=== PATIENT | female | born 1975 | race Caucasian/White ===

== ENCOUNTER → 2017-01-20 | Outpatient (CLI) | payer BC ==
--- NOTE | 2017-01-22 11:00 | MM ---
Reason for exam: screening (asymptomatic). Last mammogram was performed 1 year and 1 month ago. History: Patient has history of other cancer at age 38 and is nulliparous. Physical Findings: A clinical breast exam by your physician is recommended on an annual basis and results should be correlated with mammographic findings. MG 3D Screening Mammo W/Cad Bilateral CC and MLO view(s) were taken. Prior study comparison: January 01, 2016, bilateral MG screening mammo w CAD. The breast tissue is heterogeneously dense. This may lower the sensitivity of mammography. Focal asymmetry. No significant changes when compared with prior studies. ASSESSMENT: Negative, BI-RAD 1 RECOMMENDATION: Routine screening mammogram of both breasts in 1 year.
== END | disposition home or self-care (01) ==
LOC: RADMAMWWP 15:04
PROVIDERS: ATTEND Obstetrics & Gynecology
DX: Z12.31 Encounter for screening mammogram for malignant neoplasm of breast (principal)
CPT/HCPCS: 77063; G0202

== ENCOUNTER → 2018-02-17 | Outpatient (CLI) | payer BC ==
--- NOTE | 2018-02-18 12:15 | MM ---
Reason for exam: screening (asymptomatic). Last mammogram was performed 1 year and 1 month ago. History: Patient has history of other cancer at age 38 and is nulliparous. Physical Findings: A clinical breast exam by your physician is recommended on an annual basis and results should be correlated with mammographic findings. MG 3D Screening Mammo W/Cad Bilateral CC and MLO view(s) were taken. Prior study comparison: January 20, 2017, bilateral MG 3d screening mammo w/cad. January 01, 2016, bilateral MG screening mammo w CAD. The breast tissue is heterogeneously dense. This may lower the sensitivity of mammography. No suspicious abnormality. ASSESSMENT: Negative, BI-RAD 1 RECOMMENDATION: Routine screening mammogram of both breasts in 1 year.
== END | disposition home or self-care (01) ==
LOC: RADMAMWWP 13:58
PROVIDERS: ATTEND Obstetrics & Gynecology
DX: Z12.31 Encounter for screening mammogram for malignant neoplasm of breast (principal)
CPT/HCPCS: 77063; 77067

== ENCOUNTER → 2019-03-31 | Outpatient (CLI) | payer BC ==
--- NOTE | 2019-04-01 13:25 | MM ---
Reason for exam: screening (asymptomatic). Last mammogram was performed 1 year and 1 month ago. History: Patient has history of other cancer at age 38 and is nulliparous. Physical Findings: A clinical breast exam by your physician is recommended on an annual basis and results should be correlated with mammographic findings. MG 3D Screening Mammo W/Cad Bilateral CC and MLO view(s) were taken. Prior study comparison: February 17, 2018, bilateral MG 3d screening mammo w/cad. January 20, 2017, bilateral MG 3d screening mammo w/cad. The breast tissue is heterogeneously dense. This may lower the sensitivity of mammography. There is no discrete abnormality. ASSESSMENT: Negative, BI-RAD 1 RECOMMENDATION: Routine screening mammogram of both breasts in 1 year.
== END | disposition home or self-care (01) ==
LOC: RADMAMWWP 13:31
PROVIDERS: ATTEND Obstetrics & Gynecology
DX: Z12.31 Encounter for screening mammogram for malignant neoplasm of breast (principal)
CPT/HCPCS: 77063; 77067

== ENCOUNTER → 2019-08-20 | Day surgery (SDC) | payer BC ==
[2019-08-18 15:51] VITALS: BMI 32.8
--- NOTE | 2019-08-19 18:46 | P.HPOB ---
History of Present Illness H&P Date: 08/19/19 Chief Complaint: Menorrhagia with regular cycles, dysmenorrhea This is a 43-year-old female 0 who presents for dilation and curettage with hysteroscopy and NovaSure endometrial ablation due to menorrhagia with regular cycle. She complains of menses occurring every 28-30 days lasting 5-7 days with 2-3 days very heavy flow with clots and cramping. Sometimes she actually bleeds through her tampons. She has to change her tampon every 1-1-1/2 hours. She would like definitive surgical treatment to control this bleeding issue. Her pelvic ultrasound showed a uterus measuring 9.1 x 4.2 x 3.8 cm with an endometrial thickness of 6 mm. Right ovary appeared normal and left ovary was not visible but no adnexal masses were noted. Obstetrical history: . Gynecologic history: History of chlamydia as a teenager. Her has had a vasectomy. Social history: She is . 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 Review of Systems Constitutional: Denies chills, Denies fever Eyes: denies blurred vision, denies pain Ears, nose, mouth and throat: Denies headache, Denies sore throat Cardiovascular: Denies chest pain, Denies shortness of breath Respiratory: Denies cough Gastrointestinal: Denies abdominal pain, Denies diarrhea, Denies nausea, Denies vomiting Genitourinary: Reports dysmenorrhea, Reports menorrhagia Menstruation: Reports period heavy Musculoskeletal: Reports low back pain Integumentary: Denies pruritus, Denies rash Neurological: Denies numbness, Denies weakness Psychiatric: Denies anxiety, Denies depression Endocrine: Denies fatigue, Denies weight change Past Medical History Past Medical History: Cancer, Skin Disorder Additional Past Medical History / Comment(s): ocular hypertenesion, varicose veins, granuloma annulare skin disorder, squamous cell skin cancer History of Any Multi-Drug Resistant Organisms: None Reported Past Surgical History: Orthopedic Surgery Additional Past Surgical History / Comment(s): arthroscopy rt knee, oral surgery, bilateral laser eye surgery, nasal surgery Past Anesthesia/Blood Transfusion Reactions: No Reported Reaction Past Psychological History: No Psychological Hx Reported Smoking Status: Current every day smoker Past Alcohol Use History: Occasional Past Drug Use History: None Reported - Past Family History Sister(s) Family Medical History: Cancer Additional Family Medical History / Comment(s): skin Medications and Allergies Home Medications Medication Instructions Recorded Confirmed Type Keytone Supplement 1 applicate PO DIRECTED 08/18/19 08/18/19 History Latanoprost/Pf [Latanoprost 0.005% 1 drop BOTH EYES HS 08/18/19 08/18/19 History Eye Drop] Triamcinolone Acetonide 1 applic TOPICAL BID 08/18/19 08/18/19 History [Triamcinolone Acetonide 0.025%] Allergies Allergy/AdvReac Type Severity Reaction Status Date / Time acetaminophen [From Vicodin] Allergy Hallucinations,vomiting, Verified 08/18/19 15:40 nosebleed aspirin Allergy Hallucinations,vomiting, Verified 08/18/19 15:40 nosebleed codeine Allergy Hallucinations,vomiting, Verified 08/18/19 15:40 nosebleed hydrocodone [From Vicodin] Allergy Hallucinations,vomiting, Verified 08/18/19 15:40 nosebleed oxycodone Allergy Hallucinations,vomiting, Verified 08/18/19 15:40 nosebleed Exam Osteopathic Statement: *. No significant issues noted on an osteopathic structural exam other than those noted in the History and Physical/Consult. HEENT: Within normal limits Heart: Regular rate and rhythm Lungs: Clear to auscultation bilaterally Abdomen: Soft, nontender Pelvic exam: Uterus is anteverted, nontender, with no adnexal masses or tenderness palpated. Extremities: Negative Homans Assessment and Plan (1) Menorrhagia with regular cycle Status: Acute Code(s): N92.0 - EXCESSIVE AND FREQUENT MENSTRUATION WITH REGULAR CYCLE SNOMED Code(s): 787073159 Plan: Proceed with dilation and curettage with hysteroscopy and NovaSure endometrial ablation. I have discussed the risks, benefits, and alternative therapies for the above- mentioned procedure and for both sedation/anesthesia as well as necessary blood products administration, if indicated, as they pertain to this patient. The patient has indicated her understanding and acceptance of the risks and procedures discussed.
[~2019-08-20] MED LIST: DEXAMETHASONE SOD PHOSPHATE 10 MG/ML 1 ML VIAL IV ONE; KETOROLAC 30 MG/ML 1 ML VIAL ONE; LACTATED RINGERS 1,000 ML IV SCH; LIDOCAINE 1% 20 ML VIAL (10MG/ML) FOR IV START INTRADERMA ONE; MIDAZOLAM 2 MG/2 ML VIAL IV PRN; MIDAZOLAM 2 MG/2 ML VIAL ONE; ONDANSETRON 4 MG/2 ML VIAL IVP ONE; PROPOFOL 10 MG/ML 20 ML VIAL IV ONE; Pre Op ABX Message 1 EACH MISC MISCELLANE ONE; SCOPOLAMINE 1.5MG/72HR PATCH TRANSDERM ONE; fentaNYL (PF) 50 MCG/ML 2 ML AMP IV PRN; fentaNYL (PF) 50 MCG/ML 2 ML AMP ONE
--- NOTE | 2019-08-20 08:13 | P.OP ---
Date of Procedure: 08/20/19 Preoperative Diagnosis: Menorrhagia with regular cycle Postoperative Diagnosis: Same Procedure(s) Performed: Dilation and curettage with hysteroscopy and NovaSure endometrial ablation Anesthesia: other (LMA general) Surgeon: Marielle Dc Estimated Blood Loss (ml): 5 Pathology: other (Endometrial curettings) Condition: stable Disposition: same day Indications for Procedure: This is a 43-year-old female 0 who presents for dilation and curettage with hysteroscopy and NovaSure endometrial ablation due to menorrhagia with regular cycle. She complains of menses occurring every 28-30 days lasting 5-7 days with 2-3 days very heavy flow with clots and cramping. Sometimes she actually bleeds through her tampons. She has to change her tampon every 1-1-1/2 hours. She would like definitive surgical treatment to control this bleeding issue. Her pelvic ultrasound showed a uterus measuring 9.1 x 4.2 x 3.8 cm with an endometrial thickness of 6 mm. Right ovary appeared normal and left ovary was not visible but no adnexal masses were noted. Operative Findings: Uterus is anteverted, sounded to 9 cm. Cervix is sounded to 2.5 cm. Upon hysteroscopy, a dyssynchronous endometrial pattern was noted with some polypoid type tissue noted. Both tubal ostia are visualized. A large amount of endometrial curettings are obtained. Description of Procedure: The patient is taken to the operating room. She is placed in the dorsal lithotomy position after general anesthesia was given. She is prepped and draped in the normal sterile fashion. Bladder is drained with a catheter and then removed. Pelvic exam is performed under anesthesia. Uterus is found to be anteverted with no adnexal masses. She is placed in slight Trendelenburg position. A right angle retractor is used to visualize the cervix. The anterior lip of the cervix is grasped with a single-tooth tenaculum. Cervix is sounded to 2.5 cm. Uterus is sounded to 9 cm. Cervix is gently dilated with Feldman dilators until a hysteroscope could be passed. Hysteroscopy is performed using normal saline. The above noted findings are noted. Next a polyp forceps is introduced. A moderate amount of tissue was obtained. Next medium-sized size sharp curette was placed. A large amount of endometrial curettings were obtained. Next NovaSure array was inserted into the endometrial cavity. Length was set at 6.5 cm and width was determined to be 4 cm. Next cavity assessment was completed and passed on the first try. Next NovaSure array was fired at 143 W for 53 seconds. Next the array was removed, inspected and then discarded. Next the hysteroscope was reinserted. Uniform charring was noted. Pictures were taken. Hysteroscope was removed. Single-tooth tenaculum was removed from the anterior lip of the cervix. Minimal bleeding was noted. All other instruments removed from the vagina. Sponge counts were correct. Patient is taken to recovery room in stable condition.
[2019-08-20 08:27] VITALS: TEMP 96.8
[2019-08-20 09:10] VITALS: RESP 17
[2019-08-20 09:19] VITALS: BP 114/79; PULSE 79
== END ==
LOC: OR 06:25
PROVIDERS: ATTEND Obstetrics & Gynecology
DX: N92.0 Excessive and frequent menstruation with regular cycle (principal); N84.0 Polyp of corpus uteri; H40.9 Unspecified glaucoma; L92.0 Granuloma annulare; H40.059 Ocular hypertension, unspecified eye; I83.90 Asymptomatic varicose veins of unspecified lower extremity; F17.200 Nicotine dependence, unspecified, uncomplicated; Z88.5 Allergy status to narcotic agent; Z88.6 Allergy status to analgesic agent; Z85.828 Personal history of other malignant neoplasm of skin; Z98.890 Other specified postprocedural states; Z79.52 Long term (current) use of systemic steroids; Z79.899 Other long term (current) drug therapy; Z80.8 Family history of malignant neoplasm of other organs or systems
CPT/HCPCS: 81025; 58563; J2250; J1100; J2405; J3010; J1885; J2704; 88305

== ENCOUNTER → 2020-08-14 | Outpatient (CLI) | payer BC ==
--- NOTE | 2020-08-15 12:28 | MM ---
Reason for exam: screening (asymptomatic). Last mammogram was performed 1 year and 4 months ago. History: Patient has history of other cancer at age 38 and is nulliparous. Physical Findings: A clinical breast exam by your physician is recommended on an annual basis and results should be correlated with mammographic findings. MG 3D Screening Mammo W/Cad Bilateral CC and MLO view(s) were taken. Prior study comparison: March 31, 2019, bilateral MG 3d screening mammo w/cad. February 17, 2018, bilateral MG 3d screening mammo w/cad. The breast tissue is heterogeneously dense. This may lower the sensitivity of mammography. Inferior left MLO asymmetric density does not persist on additional views. No significant changes when compared with prior studies. ASSESSMENT: Benign, BI-RAD 2 RECOMMENDATION: Routine screening mammogram of both breasts in 1 year.
== END | disposition home or self-care (01) ==
LOC: RADMAMWWP 14:23
PROVIDERS: ATTEND Obstetrics & Gynecology
DX: Z12.31 Encounter for screening mammogram for malignant neoplasm of breast (principal)
CPT/HCPCS: 77063; 77067

== ENCOUNTER → 2022-02-06 | Outpatient (CLI) | payer BC ==
--- NOTE | 2022-02-07 10:43 | MM ---
Reason for Exam: Screening (asymptomatic). Last mammogram was performed 1 year(s) and 6 month(s) ago. Patient History: Menarche at age 10. Patient has no children. Other cancer, age 38. Risk Values: Marlen 5 year model risk: 1.0%. NCI Lifetime model risk: 10.2%. Prior Study Comparison: 02/17/2018 Bilateral Screening Mammogram, [facility]. 03/31/2019 Bilateral Screening Mammogram, [facility]. 08/14/2020 Bilateral Screening Mammogram, [facility]. Tissue Density: The breast tissue is heterogeneously dense. This may lower the sensitivity of mammography. Findings: Analyzed By CAD. There is no suspicious group of microcalcifications or new suspicious mass in either breast. Overall Assessment: Negative, BI-RAD 1 Management: Screening Mammogram of both breasts in 1 year. A clinical breast exam by your physician is recommended on an annual basis and results should be correlated with mammographic findings. Electronically signed and approved by: Siva Kitchen DO
== END | disposition home or self-care (01) ==
LOC: RADMAMWWP 16:49
PROVIDERS: ATTEND Obstetrics & Gynecology
DX: Z12.31 Encounter for screening mammogram for malignant neoplasm of breast (principal)
CPT/HCPCS: 77063; 77067

== ENCOUNTER → 2023-05-15 | Outpatient (CLI) | payer BC ==
--- NOTE | 2023-05-15 11:40 | MM ---
Reason for Exam: Screening (asymptomatic). Last mammogram was performed 1 year(s) and 3 month(s) ago. Patient History: Menarche at age 10. Patient has no children. Other cancer, age 38. Risk Values: Marlen 5 year model risk: 1.0%. NCI Lifetime model risk: 10.0%. Prior Study Comparison: 03/31/2019 Bilateral Screening Mammogram, [facility]. 08/14/2020 Bilateral Screening Mammogram, [facility]. 02/06/2022 Bilateral MG 3D screening mammo w/cad, [facility]. Tissue Density: The breast tissue is heterogeneously dense. This may lower the sensitivity of mammography. Findings: Analyzed By CAD. There is no suspicious group of microcalcifications or new suspicious mass. Overall Assessment: Negative, BI-RAD 1 Management: Screening Mammogram of both breasts in [address] [facility] will attempt to contact patient to return for supplemental views and ultrasound if indicated. Patient should continue monthly self-breast exams. A clinical breast exam by your physician is recommended on an annual basis. This exam should not preclude additional follow-up of suspicious palpable abnormalities. Note on Marlen scores and lifetime risk: 1. A Marlen score greater than 3% is considered moderate risk. If this is the case, consider specialist referral to assess eligibility for a risk reducing agent. 2. If overall lifetime risk for the development of breast cancer is 20% or higher, the patient may qualify for future screening with alternating mammogram and breast MRI. Electronically signed and approved by: Siva Kitchen DO
== END | disposition home or self-care (01) ==
LOC: RADMAMWWP 09:20
PROVIDERS: ATTEND Obstetrics & Gynecology
DX: Z12.31 Encounter for screening mammogram for malignant neoplasm of breast (principal)
CPT/HCPCS: 77063; 77067

== ENCOUNTER → 2024-08-13 | Outpatient (CLI) | payer BC ==
--- NOTE | 2024-08-13 12:53 | MM ---
Reason for Exam: Screening (asymptomatic). Last mammogram was performed 1 year(s) and 3 month(s) ago. Patient History: Menarche at age 10. Patient has no children. Other cancer, age 38. Risk Values: Marlen 5 year model risk: 1.1%. NCI Lifetime model risk: 9.9%. Prior Study Comparison: 08/14/2020 Bilateral Screening Mammogram, [facility]. 02/06/2022 Bilateral MG 3D screening mammo w/cad, [facility]. 05/15/2023 Bilateral MG 3D screening mammo w/cad, [facility]. Tissue Density: The breasts are heterogeneously dense, which may obscure small masses. Findings: Analyzed By CAD. Focal asymmetry within the posterior 4:00 left breast appears more defined. This may represent superimposition shadow but further evaluation is recommended. Otherwise, no significant change. Overall Assessment: Incomplete: need additional imaging evaluation, BI-RAD 0 Management: Special View Mammogram of the left breast. Diagnostic Breast Ultrasound of the left breast. [facility] will attempt to contact patient to return for supplemental views and ultrasound if indicated. [facility], , 08/13/2024 12:50 PM. Electronically signed and approved by: Kyung Ambriz M.D. Radiologist
== END | disposition home or self-care (01) ==
LOC: RADMAMWWP 11:40
PROVIDERS: ATTEND Family Medicine
DX: Z12.31 Encounter for screening mammogram for malignant neoplasm of breast (principal); R92.333 Mammographic heterogeneous density, bilateral breasts
CPT/HCPCS: 77063; 77067